=== PATIENT | female | born 1980 | race Caucasian/White ===

== ENCOUNTER 2017-03-17 18:00 | Inpatient (IN) | payer BC ==
[~2017-03-17] VITALS: Ht 160 cm; Wt 61.7 kg
[2017-03-17] MEDS ORDERED: D5/0.45 NS 1,000 ML IV SCH (19:00)
[2017-03-17 19:47] LABS: CALCIUM 8.4 mg/dL (8.4-11.0)
[2017-03-17 19:48] LABS: BASOPHILS % (AUTO) 0.2 % (0.0-2.0); CREATININE 1.29 mg/dL (0.55-1.30); EOSINOPHILS % (AUTO) 0.1 % (0.0-4.0); HEMATOCRIT 30.4 % (36-48); HEMOGLOBIN 9.9 g/dL (12.0-16.0); LYMPHOCYTES # (AUTO) 0.5 K/uL (1.0-5.5); LYMPHOCYTES % (AUTO) 5.6 % (20.5-51.5); MEAN CORPUSCULAR HEMOGLOBIN 31 pg (27-31); MEAN CORPUSCULAR HGB CONC 33 % (32-36); MEAN CORPUSCULAR VOLUME 95 fL (79.0-98.0); MONOCYTES # (AUTO) 0.7 K/uL (0.0-1.0); MONOCYTES % (AUTO) 9.2 % (1.7-9.3); NEUTROPHILS # (AUTO) 6.8 K/uL (1.8-7.7); NEUTROPHILS % (AUTO) 84.9 % (40.0-70.0); RED BLOOD CELL COUNT(AUTO) 3.21 MIL/uL (4.2-6.2); RED CELL DISTRIBUTION WIDTH 19.2 % (9.0-15.0)
[2017-03-17 19:51] LABS: PROTHROMBIN TIME 10.9 SECS (9.5-12.5)
[2017-03-17 19:59] LABS: ALBUMIN 1.5 g/dL (3.4-4.8); TOTAL BILIRUBIN 1.9 mg/dL (0.0-1.0); TOTAL PROTEIN, SERUM 6.2 g/dL (6.4-8.3); URIC ACID 8.5 mg/dL (2.4-7.0)
[2017-03-17 20:00] LABS: PLATELET COUNT (AUTO) 57 K/uL (130-430)
[2017-03-17] MEDS ORDERED: hydrALAZINE HCL 20 MG/ML VIAL IVP ONE (20:15)
[2017-03-17 21:31] LABS: BILIRUBIN,URINE 2+ (NEGATIVE); BLOOD, URINE 3+ (NEGATIVE); CLARITY/URINE HAZY (CLEAR); COLOR,URINE AMBER (YELLOW); GLUCOSE,URINE NEGATIVE (NEGATIVE); KETONES,URINE NEGATIVE (NEGATIVE); LEUKOCYTE ESTERASE ,URINE NEGATIVE (NEGATIVE); NITRITE, URINE NEGATIVE (NEGATIVE); PH,URINE 5.5 (5.0-8.0); PROTEIN URINE 3+ (NEGATIVE)
[2017-03-17 22:00] LABS: BACTERIA,URINE MODERATE /HPF (None Seen)
[2017-03-17 22:01] LABS: MUCUS,URINE 1+ /LPF (None Seen)
[2017-03-17] MEDS ORDERED: MAGNESIUM SULFATE IN WATER 100 ML IV ONE (22:11)
[2017-03-17] MEDS ORDERED: MAGNESIUM SULFATE IN WATER 500 ML IV ONE (22:12)
[2017-03-17] MEDS ORDERED: CITRIC ACID/SODIUM CITRATE 30 ML UDC PO ONE (22:15)
[2017-03-17] MEDS ORDERED: METOCLOPRAMIDE HCL 10 MG/2 ML VIAL IVP ONE (22:15)
[2017-03-17] MEDS ORDERED: CEFAZOLIN 2 GM IVPB PREMIX 50 ML IV ONE ×3 (22:15→22:30)
[2017-03-17] MEDS ORDERED: MAGNESIUM SULFATE IN WATER 500 ML IV PRN (22:15)
[2017-03-17] MEDS ORDERED: ALBUMIN HUMAN 5% 12.5 GM/250 ML VIAL IV ONE (22:30)
[2017-03-17] MEDS ORDERED: SEVOFLURANE 15 MIN GAS INH ONE (22:30)
[2017-03-17] MEDS ORDERED: SUCCINYLCHOLINE CHLORIDE 20 MG/ML(QUELICIN) IVP ONE (22:30)
[2017-03-17] MEDS ORDERED: HYDROCORTISONE SOD SUCC 100 MG/2 ML VIAL IVP ONE (22:30)
[2017-03-17] MEDS ORDERED: DEXAMETHASONE SOD PHOSPHATE 4 MG/ML VIAL IVP ONE (22:30)
[2017-03-17] MEDS ORDERED: NS 1000 ML BAG IV ONE (22:30)
[2017-03-17] MEDS ORDERED: ONDANSETRON HCL 4 MG/2 ML VIAL IVP ONE (22:30)
[2017-03-17] MEDS ORDERED: DESFLURANE 15 MIN GAS INH ONE (22:30)
[2017-03-17] MEDS ORDERED: KETOROLAC TROMETHAMINE 30 MG VIAL IVP ONE (22:30)
[2017-03-17] MEDS ORDERED: fentaNYL CITRATE 250 MCG/5 ML AMP IV ONE (22:30)
[2017-03-17] MEDS ORDERED: LR 1,000 ML IV.SOLN IV ONE (22:30)
[2017-03-17] MEDS ORDERED: PROPOFOL 200MG/ 20ML VIAL (DIPRIVAN) IV ONE (22:30)
[2017-03-17] MEDS ORDERED: D5/0.45 NS 1,000 ML IV.SOLN IV ONE (22:30)
[2017-03-17] MEDS ORDERED: OXYTOCIN 10 UNIT/ML VIAL IV ONE (22:30)
[2017-03-18] MEDS ORDERED: LR 1,000 ML IV SCH ×2 (00:19→04:44)
[2017-03-18] MEDS ORDERED: OXYTOCIN/NORMAL SALINE 1,000 ML IV ONE ×2 (00:22→04:44)
[2017-03-18] MEDS ORDERED: HYDROmorphone 2 MG/ML VIAL ONE (00:27)
[2017-03-18] MEDS ORDERED: HYDROmorphone 1 MG INJ. 1 MG/ML AMPUL IVP PRN (00:30)
[2017-03-18] MEDS ORDERED: MEPERIDINE HCL/PF 25 MG/ML DISP.SYRIN IVP PRN (00:30)
[2017-03-18] MEDS ORDERED: HYDROmorphone 2 MG/ML VIAL IVP PRN ×2 (00:30)
[2017-03-18] MEDS ORDERED: MAGNESIUM SULFATE IN WATER 500 ML IV PRN ×2 (00:45→04:45)
[2017-03-18] MEDS ORDERED: LANOLIN 7 GM OINT. TP PRN (04:45)
[2017-03-18] MEDS ORDERED: D5/0.45 NS 1,000 ML IV SCH (05:30)
[2017-03-18] MEDS ORDERED: hydrALAZINE HCL 20 MG/ML VIAL IVP ONE ×2 (06:00→07:00)
[2017-03-18 07:23] LABS: ALBUMIN 1.9 g/dL (3.4-4.8); CALCIUM 7.5 mg/dL (8.4-11.0); CREATININE 1.31 mg/dL (0.55-1.30); POTASSIUM 4.8 mmol/L (3.5-5.1); TOTAL BILIRUBIN 1.3 mg/dL (0.0-1.0); TOTAL PROTEIN, SERUM 5.3 g/dL (6.4-8.3)
[2017-03-18 07:25] LABS: BASOPHILS % (AUTO) 0.1 % (0.0-2.0); LYMPHOCYTES # (AUTO) 0.6 K/uL (1.0-5.5); LYMPHOCYTES % (AUTO) 3.3 % (20.5-51.5); MEAN CORPUSCULAR HEMOGLOBIN 31 pg (27-31); MEAN CORPUSCULAR HGB CONC 33 % (32-36); MEAN CORPUSCULAR VOLUME 96 fL (79.0-98.0); MONOCYTES % (AUTO) 5.4 % (1.7-9.3); NEUTROPHILS # (AUTO) 16.6 K/uL (1.8-7.7); NEUTROPHILS % (AUTO) 91.2 % (40.0-70.0); PLATELET COUNT (AUTO) 78 K/uL (130-430); RED BLOOD CELL COUNT(AUTO) 2.19 MIL/uL (4.2-6.2); RED CELL DISTRIBUTION WIDTH 20.4 % (9.0-15.0); WHITE BLOOD COUNT (AUTO) 18.2 K/uL (4.8-10.8)
[2017-03-18 07:31] LABS: HEMATOCRIT 20.9 % (36-48); HEMOGLOBIN 6.9 g/dL (12.0-16.0)
[2017-03-18] MEDS: CEFAZOLIN 1 GM IVPB PREMIX 50 ML IV SCH ×3 (10:31→22:11)
[2017-03-18] MEDS: KETOROLAC TROMETHAMINE 30 MG VIAL IVP SCH (12:00)
[2017-03-18] MEDS ORDERED: ALBUMIN HUMAN 25% 200 ML IV ONE (15:30)
[2017-03-19] MEDS: KETOROLAC TROMETHAMINE 30 MG VIAL IVP SCH (05:27)
[2017-03-19 05:48] LABS: MEAN CORPUSCULAR HEMOGLOBIN 33 pg (27-31); MEAN CORPUSCULAR HGB CONC 34 % (32-36); MEAN CORPUSCULAR VOLUME 97 fL (79.0-98.0); PLATELET COUNT (AUTO) 100 K/uL (130-430); RED CELL DISTRIBUTION WIDTH 20.6 % (9.0-15.0); WHITE BLOOD COUNT (AUTO) 15.4 K/uL (4.8-10.8)
[2017-03-19 05:51] LABS: RED BLOOD CELL COUNT(AUTO) 1.33 MIL/uL (4.2-6.2)
[2017-03-19 05:53] LABS: HEMATOCRIT 12.9 % (36-48); HEMOGLOBIN 4.3 g/dL (12.0-16.0)
[2017-03-19 06:03] LABS: CREATININE 1.25 mg/dL (0.55-1.30); POTASSIUM 4.8 mmol/L (3.5-5.1)
[2017-03-19 06:08] LABS: ALBUMIN 2.5 g/dL (3.4-4.8); TOTAL BILIRUBIN 1.7 mg/dL (0.0-1.0)
[2017-03-19 06:09] LABS: ATYPICAL LYMPHOCYTES % 0 % (0-0); BASOPHILS % (MANUAL) 0 % (0-2); EOSINOPHILS % (MANUAL) 0 % (0-7); LYMPHOCYTES % (MANUAL) 4 % (20-46); MONOCYTES % (MANUAL) 3 % (0-11)
[2017-03-19 06:11] LABS: CALCIUM 6.9 mg/dL (8.4-11.0)
[2017-03-19] MEDS ORDERED: CALCIUM GLUCONATE 1 GM in D5W 50 ML IV ONE (13:00)
[2017-03-19] MEDS ORDERED: CALCIUM GLUCONATE 1 GM/10 ML VIAL IVP ONE (13:00)
[2017-03-19] MEDS ORDERED: EPOETIN ALFA 20,000 UNITS/ML VIAL SUBCUT ONE (14:45)
[2017-03-19] MEDS: SOD FERRIC GLUC COMPLEX/SUC 125 MG in NS 100 ML IV SCH (15:40)
[2017-03-19 16:13] LABS: RED BLOOD CELL COUNT(AUTO) 1.24 MIL/uL (4.2-6.2); WHITE BLOOD COUNT (AUTO) 16.8 K/uL (4.8-10.8)
[2017-03-19 16:14] LABS: HEMATOCRIT 11.9 % (36-48); LYMPHOCYTES % (AUTO) 3.3 % (20.5-51.5); MEAN CORPUSCULAR HEMOGLOBIN 32 pg (27-31); MEAN CORPUSCULAR HGB CONC 33 % (32-36); MEAN CORPUSCULAR VOLUME 97 fL (79.0-98.0); NEUTROPHILS % (AUTO) 89.9 % (40.0-70.0); PLATELET COUNT (AUTO) 147 K/uL (130-430); RED CELL DISTRIBUTION WIDTH 20.2 % (9.0-15.0)
[2017-03-19 16:15] LABS: BASOPHILS % (AUTO) 0.1 % (0.0-2.0); EOSINOPHILS % (AUTO) 0.1 % (0.0-4.0); LYMPHOCYTES # (AUTO) 0.6 K/uL (1.0-5.5); MONOCYTES # (AUTO) 1.1 K/uL (0.0-1.0); MONOCYTES % (AUTO) 6.6 % (1.7-9.3); NEUTROPHILS # (AUTO) 15.1 K/uL (1.8-7.7)
[2017-03-20] MEDS ORDERED: OXYCODONE/ACETAMINOPHEN 5-325 TABLET PO PRN (01:45)
[2017-03-20] MEDS ORDERED: HYDROcodone/ACETAMIN 5-325 MG TAB (NORCO/ VICODIN) PO PRN (01:45)
[2017-03-20] MEDS ORDERED: NACL 0.9% 1,000 ML IV ONE (02:00)
[2017-03-20 06:19] LABS: BASOPHILS % (AUTO) 0.1 % (0.0-2.0); LYMPHOCYTES # (AUTO) 0.8 K/uL (1.0-5.5); MEAN CORPUSCULAR HEMOGLOBIN 30 pg (27-31); MEAN CORPUSCULAR HGB CONC 34 % (32-36); MEAN CORPUSCULAR VOLUME 88 fL (79.0-98.0); MONOCYTES # (AUTO) 1.1 K/uL (0.0-1.0); MONOCYTES % (AUTO) 6.8 % (1.7-9.3); NEUTROPHILS # (AUTO) 14.1 K/uL (1.8-7.7); NEUTROPHILS % (AUTO) 88.1 % (40.0-70.0); PLATELET COUNT (AUTO) 122 K/uL (130-430); RED BLOOD CELL COUNT(AUTO) 2.18 MIL/uL (4.2-6.2); RED CELL DISTRIBUTION WIDTH 18.5 % (9.0-15.0)
[2017-03-20 06:53] LABS: HEMATOCRIT 19.2 % (36-48); HEMOGLOBIN 6.6 g/dL (12.0-16.0)
[2017-03-20] MEDS: OXYCODONE/ACETAMINOPHEN 5-325 TABLET PO PRN ×2 (07:09→12:45)
[2017-03-20] MEDS: SOD FERRIC GLUC COMPLEX/SUC 125 MG in NS 100 ML IV SCH (12:41)
[2017-03-20] MEDS: DOCUSATE SODIUM 100 MG CAPSULE PO PRN (12:42)
[2017-03-20] MEDS: SIMETHICONE 80 MG TAB.CHEW PO PRN (12:42)
[2017-03-20] MEDS: IBUPROFEN 600 MG TABLET PO SCH ×2 (12:43→17:59)
[2017-03-21] MEDS: IBUPROFEN 600 MG TABLET PO SCH ×4 (00:03→21:09)
[2017-03-21 07:52] LABS: BASOPHILS % (AUTO) 0.1 % (0.0-2.0); LYMPHOCYTES % (AUTO) 7.5 % (20.5-51.5); MEAN CORPUSCULAR HEMOGLOBIN 30 pg (27-31); MEAN CORPUSCULAR HGB CONC 34 % (32-36); MEAN CORPUSCULAR VOLUME 91 fL (79.0-98.0); MONOCYTES % (AUTO) 7.3 % (1.7-9.3); NEUTROPHILS # (AUTO) 11.7 K/uL (1.8-7.7); NEUTROPHILS % (AUTO) 85.1 % (40.0-70.0); PLATELET COUNT (AUTO) 96 K/uL (130-430); RED BLOOD CELL COUNT(AUTO) 2.15 MIL/uL (4.2-6.2); RED CELL DISTRIBUTION WIDTH 21.2 % (9.0-15.0); WHITE BLOOD COUNT (AUTO) 13.7 K/uL (4.8-10.8)
[2017-03-21 08:12] LABS: HEMOGLOBIN 6.5 g/dL (12.0-16.0)
[2017-03-21 08:13] LABS: HEMATOCRIT 19.5 % (36-48)
[2017-03-21] MEDS: DOCUSATE SODIUM 100 MG CAPSULE PO PRN ×2 (09:02→21:09)
[2017-03-21] MEDS: SIMETHICONE 80 MG TAB.CHEW PO PRN ×3 (09:02→21:09)
[2017-03-21] MEDS: SOD FERRIC GLUC COMPLEX/SUC 125 MG in NS 100 ML IV SCH (12:28)
[2017-03-21] MEDS ORDERED: hydrALAZINE HCL 20 MG/ML VIAL IVP ONE ×2 (15:45→18:30)
[2017-03-21] MEDS ORDERED: BISACODYL 10 MG/SUPPOSITORY RC ONE ×2 (15:45→18:45)
[2017-03-21] MEDS ORDERED: hydrALAZINE HCL 10 MG TABLET PO ONE (15:45)
[2017-03-21] MEDS ORDERED: hydrALAZINE HCL 20 MG/ML VIAL ONE (15:54)
[2017-03-21] MEDS ORDERED: BISACODYL 10 MG/SUPPOSITORY RC PRN (18:30)
[2017-03-21] MEDS ORDERED: FUROSEMIDE 20 MG/2 ML VIAL ONE ×2 (20:30→21:06)
[2017-03-21] MEDS ORDERED: FUROSEMIDE 20 MG/2 ML VIAL IVP ONE (20:30)
[2017-03-21 21:12] LABS: CALCIUM 7.1 mg/dL (8.4-11.0); CREATININE 0.96 mg/dL (0.55-1.30); MEAN CORPUSCULAR HEMOGLOBIN 30 pg (27-31); MEAN CORPUSCULAR VOLUME 90 fL (79.0-98.0); POTASSIUM 4.3 mmol/L (3.5-5.1)
[2017-03-21 21:18] LABS: MEAN CORPUSCULAR HGB CONC 34 % (32-36); PLATELET COUNT (AUTO) 97 K/uL (130-430); RED BLOOD CELL COUNT(AUTO) 2.32 MIL/uL (4.2-6.2); RED CELL DISTRIBUTION WIDTH 25.4 % (9.0-15.0)
[2017-03-21 21:20] LABS: HEMATOCRIT 20.8 % (36-48)
[2017-03-21] MEDS ORDERED: LEVOFLOXACIN 250 MG/D5W 50 ML IV ONE (21:45)
[2017-03-21] MEDS: LEVOFLOXACIN 250 MG/D5W 50 ML IV SCH (21:52)
[2017-03-21 22:08] LABS: BAND % (MANUAL) 4 % (0-6); CORRECTED WHITE BLOOD COUNT 15.6 K/uL (4.5-11.0)
[2017-03-21 22:09] LABS: ATYPICAL LYMPHOCYTES % 0 % (0-0); BASOPHILS % (MANUAL) 0 % (0-2); EOSINOPHILS % (MANUAL) 0 % (0-7); LYMPHOCYTES % (MANUAL) 4 % (20-46); MONOCYTES % (MANUAL) 6 % (0-11)
[2017-03-21 22:20] LABS: METAMYELOCYTES % 1 % (0-0)
[2017-03-22] MEDS ORDERED: hydrALAZINE HCL 20 MG/ML VIAL IVP SCH (00:30)
[2017-03-22] MEDS: IBUPROFEN 600 MG TABLET PO SCH ×2 (02:09→08:07)
[2017-03-22 07:17] LABS: BASOPHILS % (AUTO) 0.1 % (0.0-2.0); EOSINOPHILS % (AUTO) 0.1 % (0.0-4.0); LYMPHOCYTES # (AUTO) 1.1 K/uL (1.0-5.5); LYMPHOCYTES % (AUTO) 8.4 % (20.5-51.5); MEAN CORPUSCULAR HEMOGLOBIN 31 pg (27-31); MEAN CORPUSCULAR HGB CONC 34 % (32-36); MEAN CORPUSCULAR VOLUME 91 fL (79.0-98.0); MONOCYTES # (AUTO) 1.2 K/uL (0.0-1.0); MONOCYTES % (AUTO) 8.8 % (1.7-9.3); NEUTROPHILS # (AUTO) 10.9 K/uL (1.8-7.7); NEUTROPHILS % (AUTO) 82.6 % (40.0-70.0); PLATELET COUNT (AUTO) 86 K/uL (130-430); RED BLOOD CELL COUNT(AUTO) 2.17 MIL/uL (4.2-6.2); RED CELL DISTRIBUTION WIDTH 26.8 % (9.0-15.0); WHITE BLOOD COUNT (AUTO) 13.2 K/uL (4.8-10.8)
[2017-03-22 07:31] LABS: HEMOGLOBIN 6.7 g/dL (12.0-16.0)
[2017-03-22 07:32] LABS: HEMATOCRIT 19.8 % (36-48)
[2017-03-22 07:39] LABS: CREATININE 0.87 mg/dL (0.55-1.30); POTASSIUM 3.9 mmol/L (3.5-5.1); TOTAL BILIRUBIN 2.5 mg/dL (0.0-1.0); TOTAL PROTEIN, SERUM 5.2 g/dL (6.4-8.3)
[2017-03-22] MEDS ORDERED: MAGNESIUM SULFATE IN WATER 100 ML IV ONE ×2 (09:45→10:50)
[2017-03-22] MEDS ORDERED: LABETALOL HCL 100 MG TABLET PO SCH (10:15)
[2017-03-22] MEDS ORDERED: MAGNESIUM SULFATE IN WATER 500 ML IV ONE (10:50)
[2017-03-22] MEDS ORDERED: MAGNESIUM SULFATE IN WATER 500 ML IV SCH (11:00)
[2017-03-22] MEDS ORDERED: NS IV ONE (14:15)
[2017-03-22] MEDS ORDERED: METHYLPREDNISOLONE SOD SUCC IV ONE (14:15)
[2017-03-22 14:48] LABS: BILIRUBIN,URINE 2+ (NEGATIVE); BLOOD, URINE 3+ (NEGATIVE); CLARITY/URINE CLEAR (CLEAR); COLOR,URINE AMBER (YELLOW); GLUCOSE,URINE NEGATIVE (NEGATIVE); KETONES,URINE NEGATIVE (NEGATIVE); LEUKOCYTE ESTERASE ,URINE NEGATIVE (NEGATIVE); NITRITE, URINE NEGATIVE (NEGATIVE); PROTEIN URINE 3+ (NEGATIVE)
[2017-03-22] MEDS: SOD FERRIC GLUC COMPLEX/SUC 125 MG in NS 100 ML IV SCH (15:24)
[2017-03-22 15:40] LABS: BASOPHILS % (AUTO) 0.1 % (0.0-2.0); MONOCYTES # (AUTO) 0.6 K/uL (0.0-1.0); WHITE BLOOD COUNT (AUTO) 8.2 K/uL (4.8-10.8)
[2017-03-22 15:45] LABS: ALBUMIN 1.7 g/dL (3.4-4.8); CREATININE 0.84 mg/dL (0.55-1.30); POTASSIUM 3.8 mmol/L (3.5-5.1); TOTAL BILIRUBIN 1.6 mg/dL (0.0-1.0); TOTAL PROTEIN, SERUM 4.6 g/dL (6.4-8.3)
[2017-03-22] MEDS ORDERED: methylPREDNISolone SOD SUCC 40 MG/ML VIAL IVP ONE (15:45)
[2017-03-22 15:53] LABS: BACTERIA,URINE MODERATE /HPF (None Seen)
[2017-03-22 15:54] LABS: COARSE GRANULAR CASTS,URINE 0-3 /LPF (None Seen)
[2017-03-22 15:55] LABS: OTHER CASTS, URINE 0-3 /LPF (None Seen)
[2017-03-22 16:03] LABS: EOSINOPHILS % (AUTO) 0.2 % (0.0-4.0); LYMPHOCYTES # (AUTO) 0.7 K/uL (1.0-5.5); LYMPHOCYTES % (AUTO) 8.1 % (20.5-51.5); MEAN CORPUSCULAR HEMOGLOBIN 30 pg (27-31); MEAN CORPUSCULAR HGB CONC 32 % (32-36); MEAN CORPUSCULAR VOLUME 93 fL (79.0-98.0); MONOCYTES % (AUTO) 7.5 % (1.7-9.3); NEUTROPHILS # (AUTO) 6.9 K/uL (1.8-7.7); NEUTROPHILS % (AUTO) 84.1 % (40.0-70.0); PLATELET COUNT (AUTO) 64 K/uL (130-430); RED CELL DISTRIBUTION WIDTH 25.3 % (9.0-15.0)
[2017-03-22 16:21] LABS: RED BLOOD CELL COUNT(AUTO) 1.81 MIL/uL (4.2-6.2)
[2017-03-22 16:26] LABS: HEMATOCRIT 16.8 % (36-48); HEMOGLOBIN 5.4 g/dL (12.0-16.0)
[2017-03-22 16:44] LABS: INR 0.9 (0.8-1.2)
[2017-03-22] MEDS: NACL 0.9% 1,000 ML IV SCH (17:45)
[2017-03-22] MEDS: FOLIC ACID 1 MG TABLET PO SCH (18:15)
[2017-03-22 20:00] VITALS: BP_SYST 145
[2017-03-22] MEDS: RHO(D) IMMUNE GLOBULIN/MALTOSE 1500 UNITS/1.3 ML (WINHRO) IM PRN (20:30)
[2017-03-22 21:00] VITALS: BP_SYST 153
[2017-03-22 21:17] LABS: BASOPHILS % (AUTO) 0.1 % (0.0-2.0); EOSINOPHILS % (AUTO) 0.2 % (0.0-4.0); LYMPHOCYTES # (AUTO) 0.4 K/uL (1.0-5.5); MEAN CORPUSCULAR HEMOGLOBIN 31 pg (27-31); MEAN CORPUSCULAR HGB CONC 34 % (32-36); MEAN CORPUSCULAR VOLUME 93 fL (79.0-98.0); MONOCYTES # (AUTO) 0.3 K/uL (0.0-1.0); MONOCYTES % (AUTO) 3.1 % (1.7-9.3); NEUTROPHILS # (AUTO) 9.1 K/uL (1.8-7.7); NEUTROPHILS % (AUTO) 92.6 % (40.0-70.0); PLATELET COUNT (AUTO) 66 K/uL (130-430); RED BLOOD CELL COUNT(AUTO) 2.02 MIL/uL (4.2-6.2); WHITE BLOOD COUNT (AUTO) 9.8 K/uL (4.8-10.8)
[2017-03-22 21:32] LABS: HEMATOCRIT 18.8 % (36-48); HEMOGLOBIN 6.3 g/dL (12.0-16.0)
[2017-03-22] MEDS ORDERED: HEPARIN SODIUM,PORCINE 5000 UNITS/ML VIAL ONE (21:53)
[2017-03-22 22:00] VITALS: BP_SYST 157
[2017-03-22] MEDS: methylPREDNISolone SOD SUCC 40 MG/ML VIAL IVP SCH (22:24)
[2017-03-22] MEDS ORDERED: DIPHENHYDRAMINE INJ 50 MG/ML VIAL IVP ONE (22:30)
[2017-03-22] MEDS ORDERED: CALCIUM GLUCONATE 1 GM/10 ML VIAL IVP ONE (22:30)
[2017-03-22] MEDS ORDERED: ACETAMINOPHEN 325 MG TABLET PO ONE (22:30)
[2017-03-22] MEDS ORDERED: HYDROCORTISONE SOD SUCC 100 MG/2 ML VIAL IVP ONE (22:30)
[2017-03-22 23:00] VITALS: BP_SYST 155
[2017-03-23] VITALS (36 sets, daily range): BP systolic 102–192
[2017-03-23] MEDS ORDERED: FUROSEMIDE 40 MG/4 ML VIAL IVP ONE ×2 (03:15→05:30)
[2017-03-23] MEDS ORDERED: FUROSEMIDE 40 MG/4 ML VIAL ONE ×2 (03:29→05:38)
[2017-03-23] MEDS ORDERED: hydrALAZINE HCL 20 MG/ML VIAL ONE (03:30)
[2017-03-23] MEDS: LEVOFLOXACIN 250 MG/D5W 50 ML IV SCH (04:14)
[2017-03-23] MEDS ORDERED: MAGNESIUM SULFATE IN WATER 500 ML IV SCH (05:15)
[2017-03-23 05:20] LABS: ABG TOTAL HEMOGLOBIN 10.7 G/dL (12.0-18.0); BLOOD GAS BASE EXCESS -8.2 mmol/L (-3.0-3.0); BLOOD GAS COHb% 0.6 % (0.5-1.5); BLOOD GAS HHB 2.4 % (0.0-6.0); BLOOD O2Hb% 96.7 % (94.0-97.0)
[2017-03-23 05:26] LABS: BASOPHILS % (AUTO) 0.1 % (0.0-2.0); EOSINOPHILS % (AUTO) 0.2 % (0.0-4.0); LYMPHOCYTES # (AUTO) 0.4 K/uL (1.0-5.5); MEAN CORPUSCULAR HGB CONC 33 % (32-36); MEAN CORPUSCULAR VOLUME 92 fL (79.0-98.0); WHITE BLOOD COUNT (AUTO) 13.3 K/uL (4.8-10.8)
[2017-03-23 05:31] LABS: LYMPHOCYTES % (AUTO) 2.8 % (20.5-51.5); MEAN CORPUSCULAR HEMOGLOBIN 31 pg (27-31); MONOCYTES # (AUTO) 0.4 K/uL (0.0-1.0); MONOCYTES % (AUTO) 2.9 % (1.7-9.3); NEUTROPHILS # (AUTO) 12.5 K/uL (1.8-7.7); PLATELET COUNT (AUTO) 77 K/uL (130-430); RED BLOOD CELL COUNT(AUTO) 3.25 MIL/uL (4.2-6.2); RED CELL DISTRIBUTION WIDTH 17.8 % (9.0-15.0)
[2017-03-23 05:33] LABS: INR 0.9 (0.8-1.2); PROTHROMBIN TIME 9.8 SECS (9.5-12.5)
[2017-03-23 05:49] LABS: CREATININE 0.88 mg/dL (0.55-1.30); POTASSIUM 4.2 mmol/L (3.5-5.1); THYROID STIMULATING HORMONE 0.7 uIu/mL (0.34-4.82); TOTAL BILIRUBIN 2.4 mg/dL (0.0-1.0); TOTAL PROTEIN, SERUM 5.7 g/dL (6.4-8.3)
[2017-03-23 05:53] LABS: CALCIUM 6.6 mg/dL (8.4-11.0)
[2017-03-23] MEDS ORDERED: LORazepam 2 MG/ML VIAL IVP ONE (06:15)
[2017-03-23] MEDS ORDERED: LABETALOL 100 MG/ 20ML VIAL IVP ONE (06:15)
[2017-03-23] MEDS ORDERED: LABETALOL 100 MG/ 20ML VIAL ONE (06:18)
[2017-03-23] MEDS ORDERED: LORazepam 2 MG/ML VIAL ONE (06:22)
[2017-03-23] MEDS: IPRATROPIUM/ALBUTEROL SULFATE 3 ML AMPUL.NEB INH SCH ×5 (08:02→23:39)
[2017-03-23 08:27] LABS: BLOOD GAS PH 7.224 (7.350-7.450)
[2017-03-23 08:28] LABS: ABG TOTAL HEMOGLOBIN 10.8 G/dL (12.0-18.0); BLOOD GAS BASE EXCESS -10.8 mmol/L (-3.0-3.0); BLOOD GAS COHb% 0.4 % (0.5-1.5); BLOOD GAS HHB 22.3 % (0.0-6.0)
[2017-03-23] MEDS ORDERED: ETOMIDATE 20 MG/ 10 ML VIAL (AMIDATE) IVP ONE (08:30)
[2017-03-23] MEDS ORDERED: SUCCINYLCHOLINE CHLORIDE 20 MG/ML(QUELICIN) IVP ONE ×2 (08:30→23:00)
[2017-03-23] MEDS: FOLIC ACID 1 MG TABLET PO SCH (09:00)
[2017-03-23] MEDS ORDERED: SODIUM BICARBONATE 8.4% JECT 50 MEQ/50 ML SYRINGE IVP ONE ×2 (09:15→14:15)
[2017-03-23] MEDS ORDERED: MORPHINE 2 MG/ML INJ. SYRINGE IVP PRN (09:15)
[2017-03-23] MEDS ORDERED: PROPOFOL DRIP 100 ML IV ONE (09:16)
[2017-03-23] MEDS ORDERED: SODIUM BICARBONATE 8.4% JECT 50 MEQ/50 ML SYRINGE ONE (09:20)
[2017-03-23 09:53] LABS: BLOOD GAS PH 7.238 (7.350-7.450)
[2017-03-23 09:54] LABS: ABG TOTAL HEMOGLOBIN 11.1 G/dL (12.0-18.0); BLOOD GAS BASE EXCESS -10.2 mmol/L (-3.0-3.0)
[2017-03-23] MEDS ORDERED: DIPHENHYDRAMINE INJ 50 MG/ML VIAL ONE (09:54)
[2017-03-23 09:55] LABS: BLOOD GAS COHb% 0.6 % (0.5-1.5); BLOOD GAS HHB 16.6 % (0.0-6.0); BLOOD O2Hb% 82.7 % (94.0-97.0)
[2017-03-23] MEDS ORDERED: MORPHINE 2 MG/ML INJ. SYRINGE ONE (09:59)
[2017-03-23] MEDS: methylPREDNISolone SOD SUCC 40 MG/ML VIAL IVP SCH ×2 (09:59→20:26)
[2017-03-23] MEDS: LORazepam 2 MG/ML VIAL IVP PRN ×3 (10:26→13:05)
[2017-03-23 10:42] LABS: BLOOD GAS PH 7.307 (7.350-7.450)
[2017-03-23 10:43] LABS: BLOOD GAS BASE EXCESS -7.4 mmol/L (-3.0-3.0); BLOOD GAS COHb% 0.3 % (0.5-1.5); BLOOD O2Hb% 88.1 % (94.0-97.0)
[2017-03-23 11:00] LABS: HEMOGLOBIN 9.9 g/dL (12.0-16.0)
[2017-03-23] MEDS: MORPHINE 2 MG/ML INJ. SYRINGE IVP PRN ×4 (11:35→22:00)
[2017-03-23] MEDS: MORPHINE 4 MG/ML INJ. SYRINGE IVP PRN ×2 (13:04→23:59)
[2017-03-23] MEDS: CEFEPIME 1 GM in D5W 50 ML IV SCH ×2 (13:06→20:25)
[2017-03-23 14:06] LABS: ABG TOTAL HEMOGLOBIN 8.6 G/dL (12.0-18.0); BLOOD GAS BASE EXCESS -3.1 mmol/L (-3.0-3.0); BLOOD GAS COHb% 0.4 % (0.5-1.5); BLOOD GAS HHB 8.1 % (0.0-6.0); BLOOD GAS PH 7.381 (7.350-7.450)
[2017-03-23] MEDS: PROPOFOL DRIP 100 ML IV PRN ×2 (14:46→23:44)
[2017-03-23] MEDS: SOD FERRIC GLUC COMPLEX/SUC 125 MG in NS 100 ML IV SCH (15:04)
[2017-03-23] MEDS: LEVOFLOXACIN 500 MG/D5W 100 ML IV SCH (15:59)
[2017-03-23] MEDS: FAMOTIDINE PF 20 MG/2 ML VIAL IVP SCH (20:26)
[2017-03-23 22:45] LABS: TPROTEIN U,24HR 15220.8 mg/24HR (0-130)
[2017-03-23 22:46] LABS: CREATININE,URINE 52.8 MG/DL (30-125)
[2017-03-23] MEDS ORDERED: ETOMIDATE 20 MG/ 10 ML VIAL (AMIDATE) ONE (23:00)
[2017-03-23 23:04] LABS: CREATININE 0.9 mg/dL (0.55-1.30)
[2017-03-24] VITALS (35 sets, daily range): BP systolic 120–161
[2017-03-24] MEDS: MORPHINE 4 MG/ML INJ. SYRINGE IVP PRN ×9 (02:05→23:29)
[2017-03-24] MEDS: IPRATROPIUM/ALBUTEROL SULFATE 3 ML AMPUL.NEB INH SCH ×6 (03:55→23:58)
[2017-03-24] MEDS: PROPOFOL DRIP 100 ML IV PRN ×4 (04:58→21:06)
[2017-03-24] MEDS ORDERED: PROPOFOL DRIP 100 ML IV ONE (04:59)
[2017-03-24 06:13] LABS: HEMOGLOBIN 8.5 g/dL (12.0-16.0); LYMPHOCYTES # (AUTO) 0.3 K/uL (1.0-5.5); LYMPHOCYTES % (AUTO) 1.6 % (20.5-51.5); NEUTROPHILS # (AUTO) 16.3 K/uL (1.8-7.7)
[2017-03-24 06:23] LABS: CREATININE 0.66 mg/dL (0.55-1.30); POTASSIUM 4.1 mmol/L (3.5-5.1)
[2017-03-24 06:28] LABS: HEMATOCRIT 25.5 % (36-48); MEAN CORPUSCULAR HEMOGLOBIN 32 pg (27-31); MEAN CORPUSCULAR HGB CONC 33 % (32-36); MEAN CORPUSCULAR VOLUME 95 fL (79.0-98.0); MONOCYTES # (AUTO) 0.8 K/uL (0.0-1.0); MONOCYTES % (AUTO) 4.4 % (1.7-9.3); RED BLOOD CELL COUNT(AUTO) 2.69 MIL/uL (4.2-6.2); RED CELL DISTRIBUTION WIDTH 18.4 % (9.0-15.0); WHITE BLOOD COUNT (AUTO) 17.4 K/uL (4.8-10.8)
[2017-03-24 06:47] LABS: ALBUMIN 2.1 g/dL (3.4-4.8); TOTAL BILIRUBIN 1.7 mg/dL (0.0-1.0); TOTAL PROTEIN, SERUM 4.7 g/dL (6.4-8.3)
[2017-03-24 06:48] LABS: THYROID STIMULATING HORMONE 1.37 uIu/mL (0.36-3.74)
[2017-03-24 06:51] LABS: CALCIUM 6.6 mg/dL (8.4-11.0)
[2017-03-24 07:06] LABS: PLATELET COUNT (AUTO) 65 K/uL (130-430)
[2017-03-24 07:15] LABS: FIBRINOGEN 280 mg/dL (200-400)
[2017-03-24 07:22] LABS: BLOOD GAS PH 7.385 (7.350-7.450)
[2017-03-24 07:23] LABS: ABG TOTAL HEMOGLOBIN 8.9 G/dL (12.0-18.0); BLOOD GAS BASE EXCESS 0.2 mmol/L (-3.0-3.0); BLOOD GAS COHb% 0.5 % (0.5-1.5); BLOOD GAS HHB 1.3 % (0.0-6.0); BLOOD O2Hb% 97.2 % (94.0-97.0)
[2017-03-24] MEDS ORDERED: CALCIUM GLUCONATE 1 GM/10 ML VIAL IV ONE (08:00)
[2017-03-24] MEDS: RHO(D) IMMUNE GLOBULIN/MALTOSE 1500 UNITS/1.3 ML (WINHRO) IM PRN (08:21)
[2017-03-24] MEDS: methylPREDNISolone SOD SUCC/PF 62.5 MG/ML VIAL IVP SCH ×2 (08:37→20:50)
[2017-03-24] MEDS: NACL 0.9% 1,000 ML IV SCH ×2 (08:53→17:45)
[2017-03-24] MEDS ORDERED: CALCIUM GLUCONATE 3 GM in NS 100 ML IV ONE (09:00)
[2017-03-24] MEDS ORDERED: FOLIC ACID 5 MG/ML VIAL IV SCH (09:45)
[2017-03-24] MEDS ORDERED: DIPHENHYDRAMINE INJ 50 MG/ML VIAL ONE (10:02)
[2017-03-24] MEDS ORDERED: ACETAMINOPHEN 650 MG/20.3 ML UDC ONE (10:03)
[2017-03-24] MEDS: DIPHENHYDRAMINE INJ 50 MG/ML VIAL IVP PRN (10:10)
[2017-03-24] MEDS ORDERED: CALCIUM GLUCONATE 2 GM in NS 100 ML IV ONE (10:15)
[2017-03-24] MEDS: LORazepam 2 MG/ML VIAL IVP PRN ×4 (10:17→23:28)
[2017-03-24] MEDS ORDERED: FOLIC ACID 1 MG in NS 50 ML IV ONE (10:30)
[2017-03-24] MEDS: CEFEPIME 1 GM in D5W 50 ML IV SCH ×2 (11:26→20:48)
[2017-03-24] MEDS: LEVOFLOXACIN 500 MG/D5W 100 ML IV SCH (11:26)
[2017-03-24] MEDS: hydrALAZINE HCL 20 MG/ML VIAL IVP PRN ×2 (13:32→19:39)
[2017-03-24] MEDS: FAMOTIDINE PF 20 MG/2 ML VIAL IVP SCH ×2 (13:34→20:50)
[2017-03-24] MEDS: SOD FERRIC GLUC COMPLEX/SUC 125 MG in NS 100 ML IV SCH (14:28)
[2017-03-24 15:33] LABS: BILIRUBIN,URINE 1+ (NEGATIVE); BLOOD, URINE 1+ (NEGATIVE); CLARITY/URINE SL HAZY (CLEAR); COLOR,URINE YELLOW (YELLOW); GLUCOSE,URINE NEGATIVE (NEGATIVE); KETONES,URINE NEGATIVE (NEGATIVE); LEUKOCYTE ESTERASE ,URINE NEGATIVE (NEGATIVE); NITRITE, URINE NEGATIVE (NEGATIVE); PH,URINE 5.5 (5.0-8.0); PROTEIN URINE 3+ (NEGATIVE); UROBILINOGEN,URINE 0.2 (0.2-1.0)
[2017-03-24 16:05] LABS: BACTERIA,URINE RARE /HPF (None Seen); HYALINE CASTS, URINE 0-10 /LPF (None Seen); WBC,URINE 0-3 /HPF (0-3)
[2017-03-24] MEDS: ACETAMINOPHEN 650 MG/20.3 ML UDC NG PRN ×2 (16:16→20:49)
[2017-03-25] VITALS (35 sets, daily range): BP systolic 115–170
[2017-03-25] MEDS: PROPOFOL DRIP 100 ML IV PRN ×4 (00:44→21:06)
[2017-03-25] MEDS: MORPHINE 4 MG/ML INJ. SYRINGE IVP PRN (03:02)
[2017-03-25] MEDS: LORazepam 2 MG/ML VIAL IVP PRN ×4 (03:02→22:20)
[2017-03-25] MEDS: ACETAMINOPHEN 650 MG/20.3 ML UDC NG PRN ×2 (03:03→08:43)
[2017-03-25] MEDS: IPRATROPIUM/ALBUTEROL SULFATE 3 ML AMPUL.NEB INH SCH ×6 (03:40→23:35)
[2017-03-25 06:30] LABS: MEAN CORPUSCULAR HEMOGLOBIN 32 pg (27-31); MEAN CORPUSCULAR HGB CONC 33 % (32-36); MEAN CORPUSCULAR VOLUME 97 fL (79.0-98.0); RED BLOOD CELL COUNT(AUTO) 2.09 MIL/uL (4.2-6.2); RED CELL DISTRIBUTION WIDTH 23.6 % (9.0-15.0); WHITE BLOOD COUNT (AUTO) 11.5 K/uL (4.8-10.8)
[2017-03-25 07:07] LABS: CALCIUM 7.2 mg/dL (8.4-11.0); CREATININE 0.82 mg/dL (0.55-1.30); POTASSIUM 3.6 mmol/L (3.5-5.1)
[2017-03-25 07:10] LABS: IRON (SERUM) 35 mcg/dL (37-145); TOTAL IRON BIND. CAPACITY 153 ug/dL (250-450)
[2017-03-25 07:29] LABS: TOTAL BILIRUBIN 1.5 mg/dL (0.0-1.0); TOTAL PROTEIN, SERUM 4.6 g/dL (6.4-8.3)
[2017-03-25 07:43] LABS: HEMATOCRIT 20.4 % (36-48); HEMOGLOBIN 6.8 g/dL (12.0-16.0); PLATELET COUNT (AUTO) 48 K/uL (130-430)
[2017-03-25 08:08] LABS: COMPLEMENT C4, SERUM 6 mg/dL (14-44)
[2017-03-25] MEDS: DIPHENHYDRAMINE INJ 50 MG/ML VIAL IVP PRN (08:43)
[2017-03-25] MEDS: hydrALAZINE HCL 20 MG/ML VIAL IVP PRN ×3 (08:43→22:07)
[2017-03-25] MEDS: CALCIUM GLUCONATE 3 GM in NS 100 ML IV PRN (08:43)
[2017-03-25 09:43] LABS: BLOOD GAS PH 7.447 (7.350-7.450)
[2017-03-25 09:44] LABS: ABG TOTAL HEMOGLOBIN 7.9 G/dL (12.0-18.0); BLOOD GAS HHB 6.4 % (0.0-6.0)
[2017-03-25 09:54] LABS: RETICULOCYTE COUNT 9.4 % (0.5-1.5)
[2017-03-25 10:01] LABS: BAND % (MANUAL) 5 % (0-6); BASOPHILS % (MANUAL) 0 % (0-2); EOSINOPHILS % (MANUAL) 0 % (0-7); LYMPHOCYTES % (MANUAL) 6 % (20-46); MONOCYTES % (MANUAL) 2 % (0-11)
[2017-03-25] MEDS: FAMOTIDINE PF 20 MG/2 ML VIAL IVP SCH ×2 (10:28→20:16)
[2017-03-25] MEDS: methylPREDNISolone SOD SUCC/PF 62.5 MG/ML VIAL IVP SCH ×2 (10:28→20:16)
[2017-03-25] MEDS: CEFEPIME 1 GM in D5W 50 ML IV SCH ×2 (10:28→20:16)
[2017-03-25] MEDS: FOLIC ACID 1 MG in NS 50 ML IV SCH (11:16)
[2017-03-25] MEDS: LABETALOL 100 MG/ 20ML VIAL IVP PRN ×2 (11:48→18:49)
[2017-03-25] MEDS: MORPHINE 2 MG/ML INJ. SYRINGE IVP PRN ×2 (11:48→22:21)
[2017-03-25] MEDS: LEVOFLOXACIN 500 MG/D5W 100 ML IV SCH (11:59)
[2017-03-25] MEDS: FLUCONAZOLE 200 mg/ NS 100 ML IV SCH (13:50)
[2017-03-25] MEDS ORDERED: ALBUMIN HUMAN 25% 50 ML IV SCH (14:15)
[2017-03-25] MEDS: SOD FERRIC GLUC COMPLEX/SUC 125 MG in NS 100 ML IV SCH (16:07)
[2017-03-25] MEDS: NACL 0.9% 1,000 ML IV SCH (17:56)
[2017-03-25] MEDS: ACETAMINOPHEN 650 MG/20.3 ML UDC GT PRN (22:00)
[2017-03-26] VITALS (35 sets, daily range): BP systolic 149–175
[2017-03-26] MEDS: MORPHINE 4 MG/ML INJ. SYRINGE IVP PRN ×5 (00:09→23:29)
[2017-03-26] MEDS: LABETALOL 100 MG/ 20ML VIAL IVP PRN ×3 (00:11→23:28)
[2017-03-26] MEDS: PROPOFOL DRIP 100 ML IV PRN ×4 (03:30→20:03)
[2017-03-26] MEDS: IPRATROPIUM/ALBUTEROL SULFATE 3 ML AMPUL.NEB INH SCH ×6 (04:31→23:00)
[2017-03-26] MEDS: ACETAMINOPHEN 650 MG/20.3 ML UDC GT PRN ×2 (05:00→13:43)
[2017-03-26 07:07] LABS: HEMOGLOBIN 7.5 g/dL (12.0-16.0); MEAN CORPUSCULAR HEMOGLOBIN 32 pg (27-31); MEAN CORPUSCULAR HGB CONC 33 % (32-36); MEAN CORPUSCULAR VOLUME 97 fL (79.0-98.0); RED BLOOD CELL COUNT(AUTO) 2.36 MIL/uL (4.2-6.2); RED CELL DISTRIBUTION WIDTH 22.5 % (9.0-15.0); WHITE BLOOD COUNT (AUTO) 13.3 K/uL (4.8-10.8)
[2017-03-26 07:17] LABS: ALANINE AMINOTRANSFERASE 23 U/L (12-78); ALBUMIN 2.4 g/dL (3.4-4.8); ASPARTATE AMINOTRANSFERASE 44 U/L (10-37); CALCIUM 7.5 mg/dL (8.4-11.0); CHLORIDE 112 mmol/L (98-107); CREATININE 0.75 mg/dL (0.55-1.30); GLUCOSE 148 mg/dL (70-99); LACTATE DEHYDROGENASE 604 U/L (81-234); POTASSIUM 3.6 mmol/L (3.5-5.1); SODIUM SERUM 145 mmol/L (136-145); TOTAL BILIRUBIN 2.2 mg/dL (0.0-1.0); UREA NITROGEN, BLOOD 29 mg/dL (8-21)
[2017-03-26 07:25] LABS: GFR AFRICAN AMERICAN 112 mL/min (>90)
[2017-03-26 07:26] LABS: ANION GAP < 3 (5-15)
[2017-03-26 07:30] LABS: INR 0.9 (0.8-1.2); PROTHROMBIN TIME 9.9 SECS (9.5-12.5)
[2017-03-26 07:49] LABS: PLATELET COUNT (AUTO) 32 K/uL (130-430)
[2017-03-26 07:52] LABS: BLOOD GAS PH 7.496 (7.350-7.450)
[2017-03-26 07:53] LABS: ABG TOTAL HEMOGLOBIN 7.5 G/dL (12.0-18.0); BLOOD GAS BASE EXCESS 8.2 mmol/L (-3.0-3.0); BLOOD GAS COHb% 0.7 % (0.5-1.5); BLOOD O2Hb% 95.2 % (94.0-97.0)
[2017-03-26] MEDS: DIPHENHYDRAMINE INJ 50 MG/ML VIAL IVP PRN ×2 (09:04→17:44)
[2017-03-26] MEDS: methylPREDNISolone SOD SUCC/PF 62.5 MG/ML VIAL IVP SCH ×2 (09:04→20:23)
[2017-03-26] MEDS: ACETAMINOPHEN 650 MG/20.3 ML UDC NG PRN ×2 (09:04→17:43)
[2017-03-26] MEDS: FAMOTIDINE PF 20 MG/2 ML VIAL IVP SCH ×2 (09:04→20:24)
[2017-03-26] MEDS: CALCIUM GLUCONATE 3 GM in NS 100 ML IV PRN (09:05)
[2017-03-26] MEDS: CEFEPIME 1 GM in D5W 50 ML IV SCH ×2 (09:08→20:23)
[2017-03-26] MEDS ORDERED: MAGNESIUM SULFATE 1 GM/2 ML VIAL IVP SCH (10:00)
[2017-03-26] MEDS: FOLIC ACID 1 MG in NS 50 ML IV SCH (10:09)
[2017-03-26] MEDS ORDERED: MAGNESIUM SULFATE 1 GM in NS 100 ML IV ONE ×4 (10:15)
[2017-03-26 12:07] LABS: BAND % (MANUAL) 3 % (0-6); BASOPHILS % (MANUAL) 0 % (0-2); EOSINOPHILS % (MANUAL) 0 % (0-7); LYMPHOCYTES % (MANUAL) 2 % (20-46); MONOCYTES % (MANUAL) 3 % (0-11)
[2017-03-26] MEDS: FLUCONAZOLE 200 mg/ NS 100 ML IV SCH (12:37)
[2017-03-26] MEDS: hydrALAZINE HCL 20 MG/ML VIAL IVP PRN ×2 (12:48→20:42)
[2017-03-26] MEDS: LORazepam 2 MG/ML VIAL IVP PRN (13:39)
[2017-03-26] MEDS: LEVOFLOXACIN 500 MG/D5W 100 ML IV SCH (13:43)
[2017-03-26 14:05] LABS: COMPLEMENT C3, SERUM 31 mg/dL (82-167)
[2017-03-26] MEDS ORDERED: CALCIUM GLUCONATE 1 GM/10 ML VIAL IVP ONE (14:15)
[2017-03-26 14:33] LABS: BLOOD GAS BASE EXCESS 11.5 mmol/L (-3.0-3.0); BLOOD GAS PH 7.515 (7.350-7.450)
[2017-03-26 14:34] LABS: ABG TOTAL HEMOGLOBIN 7.2 G/dL (12.0-18.0); BLOOD GAS COHb% 0.4 % (0.5-1.5); BLOOD GAS HHB 2.6 % (0.0-6.0); BLOOD O2Hb% 95.9 % (94.0-97.0)
[2017-03-26] MEDS ORDERED: CALCIUM GLUCONATE 3 GM in NS 100 ML IV ONE (14:45)
[2017-03-26] MEDS: SOD FERRIC GLUC COMPLEX/SUC 125 MG in NS 100 ML IV SCH (14:53)
[2017-03-26 15:16] LABS: FOLATE (FOLIC ACID) 8.9 ng/mL (>3.0)
[2017-03-26] MEDS: NACL 0.9% 1,000 ML IV SCH (17:47)
[2017-03-27] MEDS ORDERED: MAGNESIUM SULFATE 1 GM in NS 100 ML IV SCH (09:00)
== END 2017-03-27 00:05 | disposition short-term general hospital (02) | DRG 765 ==
LOC: SPU 18:00 → OBSVTOIN 21:55 → SPU 03-20 19:00 → SIC 03-22 18:25
PROVIDERS: ADMIT Specialist; ATTEND Internal Medicine
PROC: 30233L1 Transfusion of Nonautologous Fresh Plasma into Peripheral Vein, Percutaneous Approach (ICD-10-PCS; 2017-03-18)
PROC: 30233S1 Transfusion of Nonautologous Globulin into Peripheral Vein, Percutaneous Approach (ICD-10-PCS; 2017-03-18)
PROC: 30233K1 Transfusion of Nonautologous Frozen Plasma into Peripheral Vein, Percutaneous Approach (ICD-10-PCS; 2017-03-18)
PROC: 10D00Z1 Extraction of Products of Conception, Low, Open Approach (ICD-10-PCS; principal; 2017-03-19)
PROC: 30233N1 Transfusion of Nonautologous Red Blood Cells into Peripheral Vein, Percutaneous Approach (ICD-10-PCS; 2017-03-19)
DX: O99.42 Diseases of the circulatory system complicating childbirth (principal); O15.1 Eclampsia complicating labor; J96.01 Acute respiratory failure with hypoxia; M31.1 Thrombotic microangiopathy; R18.8 Other ascites; J15.9 Unspecified bacterial pneumonia; J81.0 Acute pulmonary edema; M33.20 Polymyositis, organ involvement unspecified; O10.92 Unspecified pre-existing hypertension complicating childbirth; E87.1 Hypo-osmolality and hyponatremia; O86.4 Pyrexia of unknown origin following delivery; O99.412 Diseases of the circulatory system complicating pregnancy, second trimester; R80.9 Proteinuria, unspecified; O99.89 Other specified diseases and conditions complicating pregnancy, childbirth and the puerperium; M06.9 Rheumatoid arthritis, unspecified; Z3A.25 25 weeks gestation of pregnancy; O09.512 Supervision of elderly primigravida, second trimester; O14.24 HELLP syndrome, complicating childbirth; O99.02 Anemia complicating childbirth; D64.9 Anemia, unspecified; Z37.0 Single live birth; O76 Abnormality in fetal heart rate and rhythm complicating labor and delivery; O26.892 Other specified pregnancy related conditions, second trimester; O99.284 Endocrine, nutritional and metabolic diseases complicating childbirth; O99.52 Diseases of the respiratory system complicating childbirth; E83.41 Hypermagnesemia; E88.09 Other disorders of plasma-protein metabolism, not elsewhere classified; I73.00 Raynaud's syndrome without gangrene; R04.0 Epistaxis
CPT/HCPCS: 36415; 36600; 71010; 71020-TC; 76700-TC; 76856-TC; 80048; 80053; 81000-TC; 82570-TC; 82575-TC; 82607; 82728; 82746; 82803-TC; 83540-TC; 83550-TC; 83605; 83615-TC; 83735-TC; 83880; 84156; 84302-TC; 84443-TC; 84484; 84550-TC; 85007; 85025; 85027; 85044-TC; 85379; 85384-TC; 85610-TC; 85651-TC; 85730-TC; 86160; 86870; 86880-TC; 86886; 86900; 86901; 86920; 87040-TC; 87070-TC; 87081; 87086; 87205-TC; 88305; 88307; 93005; 93306; 94002; 94003; 94640; 94760; C1751; G0378; J0330; J0360; J0610; J0690; J0692; J0885; J1030; J1100; J1170; J1200; J1450; J1644; J1720; J1885; J1940; J1956; J2060; J2270; J2405; J2590; J2704; J2790; J2916; J2930; J3010; J3475; J3490; J7030; J7050; J7060; J7120; P9021; P9041; P9046; P9059